=== PATIENT | female | born 1975 | race Caucasian/White ===

== ENCOUNTER 2016-12-18 09:39 | Emergency (ER) | payer BC ==
--- NOTE | 2016-12-18 10:19 | ERNOTE ---
ER Female HPI Date of Service: 12/18/16 Stated Complaint: POST OP SURGERY/BLEEDING Presenting Symptoms: pelvic pain, vaginal bleeding Time Seen by Provider: 12/18/16 09:56 Source: patient Exam Limitations: no limitations Immunizations: IMMUNIZATION HX Immunizations Up to Date Yes History of Influenza Vaccine Yes Hx Pneumococcal Vaccination No Allergies/Adverse Reactions: Allergies acetaminophen [From Lortab] Adverse Reaction (Severe, Verified 12/18/16 09:52) Other codeine Adverse Reaction (Severe, Verified 12/18/16 09:52) Other hydrocodone bitartrate [From Lortab] Adverse Reaction (Severe, Verified 09:52) Other morphine Adverse Reaction (Severe, Verified 12/18/16 09:52) Other Home Medications: HOME MEDICATIONS Fluoxetine HCl [Prozac] 80 mg PO DAILY 12/18/16 [Last Taken Unknown] buPROPion HCL [Wellbutrin] 100 mg PO DAILY 12/18/16 [Last Taken Unknown] - History of Present Illness Narrative: Pt. comes in with c/o LLQ and suprapubic pain with heavy vaginal bleeding that started yesterday. Pt. states that [address] Dr Jules for heavy period bleeding and had ultrasound and testing performed. Pt. states that the US showed thickened uterus so six weeks ago pt. had a Mirena IUD placed and she had constant bleeding for the six weeks she had the IUD. Pt. states that she had the IUD removed three days ago and had some spotting of blood for the two days after and yesterday the bleeding and cramping became more severe. Pt. states that it is accompanied by nausea, dizziness that is worse upon standing, but denies any SOB, CP, cough, or headache. Pt. denies any alleviating factors or aggravating factors but states that she is soaking a tampon and pad every 20 minutes and has large clots in the blood. Review of Systems - Review of Systems Constitutional: Present: weakness. Absent: fever, chills, fatigue, malaise EYE: Present: no symptoms reported ENT: Present: no symptoms reported. Absent: nose pain, nose congestion, nasal drainage, throat swelling Respiratory: Present: no symptoms reported. Absent: shortness of breath, cough , wheezing Cardiology: Present: no symptoms reported. Absent: chest pain, palpitations, edema Gastrointestinal/Abdominal: Present: no symptoms reported. Absent: nausea, vomiting, diarrhea Genitourinary: Present: discharge - bleeding Musculoskeletal: Present: no symptoms reported. Absent: back pain, joint pain Skin: Present: no symptoms reported. Absent: rash, change in color, change in hair/nails Neurological: Present: dizziness/light-headedness, weakness - generalized. Absent: headache, numbness, tingling Hematologic/Lymphatic: Present: no symptoms reported. Absent: easy bruising, easy bleeding All Other Systems: All systems neg except as marked - Patient's Past Medical History Patient History - Medical: Depression Patient History - Cardiac/Respiratory: No pertinent hx Patient History - Cancer: No Hx of Cancer Patient History - Surgical Procedures: Tubal Ligation, T & A, Other Patient History - Other: None LMP (females 10-50): unknown - Social History Living Situations: home Smoking Status: Never smoker Alcohol Use: none Drug Use: none - Immunizations Immunizations Up to Date: Yes Hx Pneumococcal Vaccination: No History of Influenza Vaccine: Yes Physical Exam - Physical Exam General Appearance: Present: wd/wn, alert, no apparent distress Eye Exam: Normal inspection: bilateral, PERRL: bilateral, EOMI: bilateral Ears, Nose, Throat: Present: normal ENT inspection, hearing grossly normal, normal pharynx Neck: Present: normal inspection, nontender. Absent: lymphadenopathy (R), lymphadenopathy (L) Respiratory: Present: no respiratory distress, normal breath sounds, no accessory muscle use, chest nontender, lungs clear Cardiovascular/Chest: Present: regular rate, rhythm, no murmur, normal peripheral pulses Gastrointestinal/Abdominal: Present: normal bowel sounds, nondistended, tenderness - Mid upper epigastric and LLQ and suprapubic Back Exam: Present: normal inspection, normal range of motion, no CVA tenderness , no vertebral tenderness Extremity Exam: Present: normal inspection, non-tender, no edema, normal range of motion Neurological Exam: Present: alert, oriented, normal mood/affect, no motor/ sensory deficits. Absent: music historian II-XII nml as tested, normal cerebellar test Skin Exam: Present: normal color, warm/dry. Absent: pallor, skin rash Pelvic Exam: Present: active bleeding, tender adnexa - L ED Progress - Date and Time Seen: Date and Time: 12/18/16 13:[address] Solomon and she recommends starting pt on control for heavy bleeding and having pt. follow up with Dr Jules in 2-3 days to monitor bleeding. Pt. refusing control as an option due to reaction in the past and agrees to follow up with Dr Jules to discuss surgical options. As pt. is not anemic and has minimal bleeding on exam feel that this is a safe option for pt. - Results and Orders Patient's Lab Results:: I have reviewed the patient's lab results. - Vital Signs Patient's Vital Signs:: I have reviewed the patient's vital signs. Vital Signs: Vital Signs 12/18/16 09:46 Temperature 36.6 C Pulse Rate 78 Respiratory 16 Rate Blood Pressure 129/83 O2 Sat by Pulse 97 Oximetry - CT/Ultrasound CT/Ultrasound Narrative: US with evidence of L ovarian hemorrhagic cyst of 1.8cm - Progress/Reassessment Chief Complaint: Genitourinary Problem Departure Clinical Impression: Abnormal uterine bleeding (AUB) - Departure Disposition: Home self-care Condition: Good Instructions: Abnormal Uterine Bleeding Additional Instructions: Please follow up with Dr Jules in 2-3 days
[2016-12-18 10:21] LABS: Urine Bilirubin Negative (NEGATIVE); Urine Blood Negative /ul (NEGATIVE); Urine Ketone Negative (NEGATIVE); Urine Nitrite Negative (NEGATIVE); Urine Protein Negative (NEGATIVE); Urine Specific Gravity <=1.005 SP.GR. (1.005-1.010); Urine Urobilinogen Normal (NORMAL); Urine pH 6.5 pH (5.0-7.0)
[2016-12-18 10:23] LABS: Hematocrit 38.8 % (37.0-47.0); Mean Cell Volume 85.7 fl (78-100); Mean Corpuscular Hemoglobin 28.7 pg (27-31); Mean Corpuscular Hgb Conc 33.5 g/dl (32-36); Mean Platelet Volume 9.6 fl (6.0-9.5); Neutrophil # 4.5 K/mm3 (1.3-6.0); Platelet Count 326 K/mm3 (150-450); Red Blood Count 4.53 M/mm3 (4.2-5.4); Red Cell Distribution Width 13.1 % (11.5-14.0); White Blood Count 6.7 K/mm3 (4.0-10.5)
[2016-12-18 10:28] LABS: Urine Appearance Clear; Urine Bacteria None Seen; Urine Color Yellow; Urine RBC None Seen /hpf (0-5); Urine WBC None Seen /hpf (0-5)
[2016-12-18 10:42] LABS: Albumin * 3.5 gm/dl (3.4-5.0); Anion Gap 12.7 mmol/L (6.8-13.8); BUN/Creatinine Ratio 17.2 (9.0-21.6); Bilirubin, Total 0.6 mg/dL (0.0-1.1); Ca. Corrected For Albumin 9.4 mg/dL (8.4-10.2); Calcium * 9.3 mg/dL (7.9-10.9); Carbon Dioxide 24.2 mmol/L (24-32.6); Potassium 3.9 mmol/L (3.4-4.6); Total Protein 7.1 gm/dL (6.2-8.2)
[2016-12-18] MEDS ORDERED: KETOROLAC TROMETHAMINE 60 MG/2 ML VIAL IM ONE ×2 (10:57→11:06)
[2016-12-18] MEDS ORDERED: ONDANSETRON 4 MG TAB.RAPDIS PO ONE (10:57)
[2016-12-18] MEDS ORDERED: diphenhydrAMINE HCL 50 MG/ML VIAL IM ONE (10:57)
[2016-12-18] MEDS ORDERED: ONDANSETRON 4 MG TAB.RAPDIS ONE (11:06)
[2016-12-18] MEDS ORDERED: diphenhydrAMINE HCL 50 MG/ML VIAL ONE (11:06)
[2016-12-18 12:07] VITALS: BP 114/51
== END 2016-12-18 13:22 | disposition home or self-care (01) ==
LOC: ER 09:39
DX: N93.9 Abnormal uterine and vaginal bleeding, unspecified (principal); F32.9 Major depressive disorder, single episode, unspecified